=== PATIENT | female | born 1930 | race Caucasian/White ===

== ENCOUNTER 2017-09-15 16:25 | Observation (INO) ==
[2017-09-15] MEDS ORDERED: Acetaminophen 325 MG TABLET PO PRN (21:57)
[2017-09-15] MEDS ORDERED: Naloxone 0.4 MG/ML INJ IVP PRN (21:57)
[2017-09-15] MEDS ORDERED: Melatonin 3 MG TABLET PO PRN (22:02)
--- NOTE | 2017-09-15 22:07 | Internal Med History&Physical ---
Date of Encounter: 09/15/17 Time of Encounter: 22:05 Assessment and Plan (1) CHF (congestive heart failure) Current visit: Yes Status: Chronic Euvolemic Continue home meds-ASA/BB/Spironolactone/Lasix/Plavix Obtain ECHO Qualifiers: Congestive heart failure type: unspecified congestive heart failure type Congestive heart failure chronicity: chronic Qualified Code(s): I50.9 - Heart failure, unspecified (2) CAD (coronary artery disease) Current visit: Yes Status: Chronic With stable angina Recent NSTEMI 07/2017 without intervention, managed medically Baseline functional status impaired due to CHF Obtain ECHO Cardiology clearance before surgery Continue home meds Qualifiers: Coronary Disease-Associated Artery/Lesion type: [place] artery [place] vs. transplanted heart: [place] heart Associated angina: with stable angina Qualified Code(s): I25.118 - Atherosclerotic heart disease of [place] coronary artery with other forms of angina pectoris (3) Fracture Current visit: Yes Status: Acute Right wrist, closed Ortho has been consulted and called pain control No neurovascular damage is evident (4) Fall Current visit: Yes Status: Acute With head injury, scalp hematoma and laceration, facial lacertaion Pain control Fall precautions Obtain UA Qualifiers: Encounter type: initial encounter Qualified Code(s): W19.XXXA - Unspecified fall, initial encounter (5) Scalp hematoma Current visit: Yes Status: Acute Monitor H/H pain control Qualifiers: Encounter type: initial encounter Qualified Code(s): S00.03XA - Contusion of scalp, initial encounter (6) Hypothyroidism Current visit: Yes Status: Chronic Resume home meds Qualifiers: Hypothyroidism type: unspecified Qualified Code(s): E03.9 - Hypothyroidism , unspecified (7) Chronic respiratory failure Current visit: Yes Status: Chronic On HOme O2 at night, continue same Qualifiers: Respiratory failure complication: hypoxia Qualified Code(s): J96.11 - Chronic respiratory failure with hypoxia Internal Medicine - H&P: HPI Chief complaint: Fall Admitted From: Hospital to Hospital Transfer Plans for Post Hospital Care: Home History of present illness: Ms. Le is a 87 year old female Seen and evaluated at bedside with her daughter She has a PMH of CAD with stable angina, recent NSTEMI 07/2017 without intervention, multiple stents in the past as well as a PCM, CHF, Hypothyroid She was in her usual state of health till this morning when she slipped and fell face down hitting her head and face in the corner of the building, she does not remember breaking the fall with her R side but remembers her hands were free. She has no diaphoresis/Chest pain/Dizziness/Shortness of breath or palpitations prior to the fall She is O2 dependent at bedtime and at baseline is unable to walk more than a few steps before getting dyspneic, this is her baseline since her last NSTEMI one month ago, during which she had refused LHC She denies any other symptoms Her main complains at time of review were Chest wall pain, R arm pain She presented to [facility] where she was found to have a facial lac, as well as frontal scalp hematoma. Work up done over there: CBC: leukocytosis, WBC 17.2. HB and PLT WNL Chem: WNL, Cr 1.39, baseline unknown CXR-No fracture rib series: No fracture C-spine CT: No fracture, suspect distal clavicular fracture T-spine CT: No fractures, normal alignment Head CT: Frontal scalp hematoma, no intracranial hge Rib series: No fracture Shoulder Xray: DJD, no fracture Wrist X-ray-Right: Comunited, intra-articular displaced and angulated fracture. Past Med Surg Social Fam HX - Past Medical History Medical history: CHF, coronary artery disease, hyperlipidemia, hypertension, thyroid disease All Systems PM: A 10-system review of systems was performed and is negative for pertinent findings except as documented above in the HPI. - Constitutional Constitutional: no chills, no fever(s), no night sweats - EENT Eyes: no change in vision, no discharge, no pain, no photophobia Ears: no ear discharge, no ear pain, no tinnitus Nose, mouth and throat: no dysphagia, no nasal discharge, no neck pain, no sore throat - Cardiovascular Cardiovascular ROS IM: as per HPI - Respiratory Respiratory: as per HPI - Gastrointestinal Gastrointestinal: as per HPI - Genitourinary Genitourinary: as per HPI - Musculoskeletal Musculoskeletal ROS IM: as per HPI - Integumentary Integumentary IM: as per HPI - Neurological Neurological ROS: no confusion, no convulsions, no focal weakness, no numbness, no tingling, no tremor(s) - Hematologic/Lymphatic Hematologic/Lymphatic: no easy bruising - Constitutional Vitals: Temp Pulse Resp BP Pulse Ox 97.9 F 77 15 129/65 96 09/15/17 20:35 09/15/17 20:35 09/15/17 20:35 09/15/17 20:35 09/15/17 20:35 VSS Gen: In mild painful distress, speaks full sentences, answers questions appropriately HEENT: Large frontal hematoma, with tenderness, frontal and perinasal laceration , with intact sutures Chest: Mild chest wall tenderness anteriorly, no bruising, s/p R mastectomy. Heart: S1, S2 only, no m/g/r Abdomen: Soft, not tender Extremities: No pedal edema. R arm in splint, normal capillary refill, normal sensation
[2017-09-15] MEDS: *HR* Heparin 5,000 UNIT/ML VIAL SQ SCH (22:24)
[2017-09-15] MEDS: *HR* HYDROcodone/Acet 5/325 mg TABLET PO PRN (22:25)
[2017-09-15 22:37] LABS: Basophils # 0.1 K/mcL (0.0-0.2); Basophils % 0.3 %; Hematocrit 40.9 % (35.3-44.9); Hemoglobin 14.6 g/dL (11.5-15.4); Immature Granulocytes % 0.3 % (0-4); Lymphocytes # 1.7 K/mcL (0.6-4.6); Lymphocytes % 11.2 %; Mean Corpuscular HGB Conc 35.7 g/dL (31.6-35.5); Mean Corpuscular Hemoglobin 30.3 pg (28.0-33.3); Mean Corpuscular Volume 84.9 fL (83.0-100.0); Mean Platelet Volume 9.4 fL (9.4-12.4); Monocytes # 1.2 K/mcL (0.0-1.3); Monocytes % 8.3 %; Neutrophils # 11.7 K/mcL (1.6-8.9); Platelet Count 192 K/mcL (140-400); Red Blood Count 4.82 M/mcL (3.82-4.97); Red Cell Distribution Width 12.9 % (11.5-14.5); Segmented Neutrophils % 79.9 %
[2017-09-15 22:49] LABS: Calcium 9.4 mg/dL (8.6-10.8)
[2017-09-15 22:50] LABS: Potassium 4.8 mEq/L (3.5-4.5)
[2017-09-15] MEDS ORDERED: Ketorolac 30 MG/ML VIAL IM ONE (23:36)
[2017-09-15] MEDS: *HR* Morphine 2 MG/ML SYRINGE IVP PRN (23:50)
[2017-09-16] MEDS: *HR* HYDROcodone/Acet 5/325 mg TABLET PO PRN ×3 (01:58→22:34)
[2017-09-16] MEDS: *HR* Morphine 2 MG/ML SYRINGE IVP PRN (03:50)
[2017-09-16 06:04] LABS: INR 1.1
[2017-09-16 06:38] LABS: Activated Partial Thrombo Time 24.5 Seconds (26.0-36.0)
[2017-09-16] MEDS: *HR* Heparin 5,000 UNIT/ML VIAL SQ SCH ×3 (08:39→20:33)
[2017-09-16] MEDS: Levothyroxine 25 MCG TABLET PO SCH (08:39)
[2017-09-16] MEDS: Furosemide 40 MG TABLET PO SCH (08:43)
[2017-09-16] MEDS: Aspirin Enteric Coated 81 MG Tablet PO SCH (08:43)
[2017-09-16] MEDS: Cholecalciferol (D-3) 1,000 UNIT TABLET PO SCH (08:43)
[2017-09-16] MEDS: Isosorbide MONOnitrate (24 HR) 30 MG TAB.ER.24H PO SCH (08:43)
[2017-09-16] MEDS: Spironolactone 25 MG TABLET PO SCH (08:43)
[2017-09-16] MEDS: *HR* OxyCODONE/APAP 5/325 TABLET PO PRN ×2 (08:44→15:53)
--- NOTE | 2017-09-16 10:21 | Cardiology Consult Note ---
<Jeanmarie Peña R - Last Filed: 09/16/17 10:18> Date of Encounter: 09/16/17 Time of Encounter: 10:18 Assessment and Plan (1) Pre-operative cardiovascular examination Current Visit: Yes Status: Acute Pre-op risk stratification for right wrist fracture. Pt is not very active. Reports chronic dyspnea with minimal exertion. Known CAD, most recent PCI reported 09/2015. Complicated by the fact that pt reports a recent NSTEMI last month at [facility] at which time she refused a LHC that was recommended due to not trusting them. Denies chest pain since being started on Imdur. Unable to accurately risk stratify pt for surgery until records are obtained and reviewed. These have been requested. Pt reports having a recent echo, reportedly preserved EF. Will request these records as well. No EKG on chart. Will obtain. (2) CAD (coronary artery disease) Current Visit: Yes Status: Chronic Hx of 3 stents, per pt, most recent 09/2015. ASA, Statin, BB. As above, recent NSTEMI and declined cath. Obtaining records. Qualifiers: Coronary Disease-Associated Artery/Lesion type: [place] artery [place] vs. transplanted heart: [place] heart Associated angina: with stable angina Qualified Code(s): I25.118 - Atherosclerotic heart disease of [place] coronary artery with other forms of angina pectoris (3) Pacemaker Current Visit: Yes Status: Acute Discussion w patient/family: The assessment and plan as outlined above was discussed with the patient and/or family members who expressed understanding and agreement. All questions were answered. Thank you for involving us in the care of your patient. Please call with any questions. I will discuss all the above with Dr. Carbone and make changes as necessary. History of Present Illness Consult date: 09/16/17 Requesting physician: Cem Murray Consult reason: pre-op risk stratification Chief complaint: fall History of present illness: Ms. Le is a 87 year old female with PMH of CAD and PCI, reported recent NSTEMI 07/2017 at [facility] at which time she refused LHC, PPM, Hypothyroidism, CHF (uncertain type)that presented in transfer after she slipped and fell face down hitting her head and face in the corner of a building. She denies loss of consciousness. She reports chronic dyspnea. She reports she had not been having any chest pain since her recent hospital discharge with addition of Coreg and Imdur. Pt found to have right wrist fx. Cardiology consulted for pre-op risk stratification. Past Med Surg Social Fam HX - Past Medical History Medical history: CHF, coronary artery disease, hyperlipidemia, hypertension, thyroid disease Psychiatric history: no psych history - Past Surgical History Surgical History: angioplasty/stent, appendectomy, breast surgery, hysterectomy - Social History Smoking Status: Never smoker Smokeless Tobacco Status: No Alcohol use: none Drug use: none - Family History Mother Family Member Ethnicity: Non- Living Status: Cause of : stroke related Hx Family Cardiac Disorders: Yes Father Living Status: Cause of : Cancer Medications and Allergies Aspirin [Lo-Dose Aspirin EC] 81 mg PO DAILY 09/15/17 [History] Carvedilol 3.125 mg PO BID 09/15/17 [History] Cholecalciferol (Vitamin D3) [Vitamin D] 1,000 unit PO DAILY 09/15/17 [History] Clopidogrel [Plavix] 75 mg PO DAILY 09/15/17 [History] Furosemide [Lasix] 40 mg PO QMWFSU 09/15/17 [History] Isosorbide MONOnitrate (24 HR) [Imdur] 30 mg PO DAILY 09/15/17 [History] Levothyroxine [Synthroid] 25 mcg PO 0630 09/15/17 [History] Melatonin/Herbal Complex #184 [Melatonin + l-Theanine Softgel] 3 mg PO HS [History] Multivit-Min/Iron Fum/Folic AC [Ymert-Mwofirt-Qwikfiak Tablet] 1 tab PO DAILY [History] Omeprazole [PriLOSEC] 20 mg PO DAILY 09/15/17 [History] Potassium Chloride [Klor-Con 10] 10 meq PO QTUTHSA 09/15/17 [History] Sennosides/Docusate Sodium [Senna Plus] 2 tab PO BID 09/15/17 [History] Simvastatin [Zocor] 40 mg PO HS 09/15/17 [History] Spironolactone [Aldactone] 25 mg PO DAILY 09/15/17 [History] Tramadol HCl [Ultram] 50 mg PO Q6H PRN 09/15/17 [History] traZODone [TraZODone] 50 mg PO HS 09/15/17 [History] 3 Allergy/AdvReac Type Severity Reaction Status Date / Time meperidine [From Demerol] AdvReac Intermediate Vomiting Verified 09/16/17 03:31 diphenhydramine AdvReac Mild See Verified 09/16/17 03:28 [From Benadryl] Comments All Systems Review: A 10-system review of systems was performed and is negative for pertinent findings except as documented above in the HPI. - Cardiovascular Cardiovascular: as per HPI, dyspnea on exertion - Respiratory Respiratory: dyspnea Physical Examination Vital Signs, Last 4 Hours Temp Pulse Resp BP Pulse Ox 09/16/17 07:05 97.4 F L 69 13 139/69 97 Vital Signs Temp Pulse Resp BP Pulse Ox 09/16/17 07:05 97.4 F L 69 13 139/69 97 09/16/17 04:46 69 15 118/58 96 09/15/17 23:25 66 20 130/64 95 09/15/17 20:35 97.9 F 77 15 129/65 96 Intake and Output 09/15/17 09/16/17 09/16/17 23:59 07:59 15:59 Intake Total 120 / 120 Balance 120 / 120 Intake: Oral 120 / 120 Other: Meal Breakfast Percent of Meal Consumed 25% # Voids 1 Weight 63.6 kg General: Conversant, No Apparent Distress HEENT: Atraumatic, Normocephaly, Mucus Membranes Moist Neck: No JVD, Normal carotid pulses Cardiac: Other (paced) Lungs: Normal Breath Sounds, No Wheeze, Rales, Rhonchi Neuro: Alert and responsive, No focal deficits noted Abdomen: Soft, Non-Tender Skin: Other (facial contusions) Musculoskeletal: No Chest Wall Tenderness Extremities: No Clubbing, No Cyanosis, No Edema, Normal Pulses Results 09/15/17 22:30 09/15/17 22:30 Lab Results 09/15/17 09/15/17 09/16/17 22:30 22:30 05:17 WBC 14.7 H Hgb 14.6 Hct 40.9 Plt Count 192 INR 1.1 APTT 24.5 L Sodium 136 Potassium 4.8 H Chloride 103 Carbon Dioxide 20 BUN 22 H Creatinine 1.16 H Glucose 153 H Calcium 9.4 Short CBC 09/15/17 Range/Units 22:30 WBC 14.7 H (4.3-11.1) K/mcL Hgb 14.6 (11.5-15.4) g/dL Hct 40.9 (35.3-44.9) % Plt Count 192 (140-400) K/mcL Neutrophils # 11.7 H (1.6-8.9) K/mcL BMP 09/15/17 Range/Units 22:30 Sodium 136 (136-145) mEq/L Potassium 4.8 H (3.5-4.5) mEq/L Chloride 103 (98-109) mEq/L Carbon Dioxide 20 (19-29) mEq/L BUN 22 H (7-20) mg/dL Creatinine 1.16 H (0.57-1.11) mg/dL Glucose 153 H (70-99) mg/dL Calcium 9.4 (8.6-10.8) mg/dL Active Medications Acetaminophen (Tylenol) 650 mg PO Q6HR PRN PRN Reason: Mild Pain (1-3) Stop: 03/17/18 21:58 Hydrocodone Bitart/Acetaminophen ([place] 5-325 Mg) 1 tab PO Q4HR PRN PRN Reason: Moderate Pain (4-6) Stop: 03/17/18 21:58 Last Admin: 09/16/17 01:58 Dose: 1 tab Aspirin (Aspirin Ec) 81 mg PO DAILY [facility] Stop: 03/18/18 09:01 Last Admin: 09/16/17 08:43 Dose: 81 mg Carvedilol (Coreg) 3.125 mg PO BIDWM [facility] PRN Reason: Protocol Stop: 03/18/18 08:01 Last Admin: 09/16/17 08:43 Dose: 3.125 mg Furosemide (Lasix) 40 mg PO DAILY [facility] Stop: 03/18/18 09:01 Last Admin: 09/16/17 08:43 Dose: 40 mg Heparin Sodium (Porcine) (Heparin) 5,000 unit SQ Q8H [facility] Stop: 03/17/18 22:01 Last Admin: 09/16/17 08:39 Dose: Not Given Isosorbide Mononitrate (Imdur) 30 mg PO DAILY [facility] Stop: 03/18/18 09:01 Last Admin: 09/16/17 08:43 Dose: 30 mg Levothyroxine Sodium (Synthroid) 25 mcg PO DAILY@0630 [facility] Stop: 03/18/18 06:31 Last Admin: 09/16/17 08:39 Dose: Not Given Melatonin (Melatonin) 3 mg PO HS PRN PRN Reason: Insomnia Stop: 03/17/18 22:03 Naloxone HCl (Narcan) 0.4 mg IVP Q2MIN PRN PRN Reason: Opioid Reversal Stop: 03/17/18 21:58 Omeprazole (Prilosec) 20 mg PO 0630 [facility] PRN Reason: Protocol Stop: 03/18/18 06:31 Last Admin: 09/16/17 08:39 Dose: Not Given Oxycodone/Acetaminophen (Percocet 5/325) 1 each PO Q6HR PRN PRN Reason: Moderate Pain Stop: 03/18/18 08:21 Last Admin: 09/16/17 08:44 Dose: 1 each Spironolactone (Aldactone) 25 mg PO DAILY [facility] Stop: 03/18/18 09:01 Last Admin: 09/16/17 08:43 Dose: 25 mg Vitamin D (Vitamin D) 1,000 unit PO DAILY [facility] Stop: 03/18/18 09:01 Last Admin: 09/16/17 08:43 Dose: 1,000 unit Consult Discharge Plan - Plan Referrals: Lisette Rodriguez MD [Primary Care Provider] - <Elizabeth Carbone - Last Filed: 09/16/17 11:53> Date of Encounter: 09/16/17 - Attending Attestation I have personally performed a face to face evaluation on this patient. I have reviewed and agree with the care plan with MARKET RESEARCH WORKER: Ms. Le presents after sustaining a mechanical fall and found to have a right wrist fracture. Cardiology was consulted for preoperative risk stratification. Patient does not appear to be very active and has chronic dyspnea. She has known coronary disease having undergone PCI reportedly in September 2015 at an outside institution. Patient's medical history is complicated by apparently having an NSTEMI at [facility] last month at which time she declined C. She denies chest pain since she was started on Imdur. However, given her limited functional status, it is challenging to elicit symptoms. At this time, it is reasonable to obtain outside records for review of recent hospitalization including but not limited to echo, cardiology notes and discharge summary. No ECG - will obtain. Assessment and Plan Discussion w patient/family: The assessment and plan as outlined above was discussed with the patient and/or family members who expressed understanding and agreement. All questions were answered. Thank you for involving us in the care of your patient. Please call with any questions. History of Present Illness History of present illness: Ms. Le is a 87 year old female All Systems Review: A 10-system review of systems was performed and is negative for pertinent findings except as documented above in the HPI. Results 09/15/17 22:30 09/15/17 22:30 Lab Results 09/15/17 09/15/17 09/16/17 22:30 22:30 05:17 WBC 14.7 H Hgb 14.6 Hct 40.9 Plt Count 192 INR 1.1 APTT 24.5 L Sodium 136 Potassium 4.8 H Chloride 103 Carbon Dioxide 20 BUN 22 H Creatinine 1.16 H Glucose 153 H Calcium 9.4
--- NOTE | 2017-09-16 10:28 | Internal Med Progress Note ---
<Uriel Alegria - Last Filed: 09/16/17 12:49> Date of Encounter: 09/16/17 Time of Encounter: 10:45 - Assessment and plan (1) Fracture Current Visit: Yes Status: Acute Assessment and plan: Right wrist, closed Ortho has been consulted and called pain control No neurovascular damage is evident Code status clarified today: patient is DNR DNI-CCA (2) Fall Current Visit: Yes Status: Acute Assessment and plan: With head injury, scalp hematoma and laceration, facial lacertaion Pain control Fall precautions Obtain UA Qualifiers: Encounter type: initial encounter Qualified Code(s): W19.XXXA - Unspecified fall, initial encounter (3) Scalp hematoma Current Visit: Yes Status: Acute Assessment and plan: Monitor H/H pain control Qualifiers: Encounter type: initial encounter Qualified Code(s): S00.03XA - Contusion of scalp, initial encounter (4) CHF (congestive heart failure) Current Visit: Yes Status: Chronic Assessment and plan: Euvolemic Prior PACER Continue home meds-ASA/BB/Spironolactone/Lasix/Plavix Obtain ECHO Qualifiers: Congestive heart failure type: unspecified congestive heart failure type Congestive heart failure chronicity: chronic Qualified Code(s): I50.9 - Heart failure, unspecified (5) CAD (coronary artery disease) Current Visit: Yes Status: Chronic Assessment and plan: With stable angina Recent NSTEMI 07/2017 without intervention, managed medically Baseline functional status impaired due to CHF Obtain ECHO Cardiology clearance before surgery Continue home meds Qualifiers: Coronary Disease-Associated Artery/Lesion type: [place] artery [place] vs. transplanted heart: [place] heart Associated angina: with stable angina Qualified Code(s): I25.118 - Atherosclerotic heart disease of [place] coronary artery with other forms of angina pectoris (6) Chronic respiratory failure Current Visit: Yes Status: Chronic Assessment and plan: On HOme O2 at night, continue same Qualifiers: Respiratory failure complication: hypoxia Qualified Code(s): J96.11 - Chronic respiratory failure with hypoxia (7) Hypothyroidism Current Visit: Yes Status: Chronic Assessment and plan: Resume home meds Qualifiers: Hypothyroidism type: unspecified Qualified Code(s): E03.9 - Hypothyroidism , unspecified (8) Weakness of right leg Current Visit: Yes Status: Acute Assessment and plan: She reports chronic right foot drop and weakness that caused her to trip and fall (9) CKD (chronic kidney disease) stage 3, GFR 30-59 ml/min Current Visit: Yes Status: Acute Assessment and plan: Patient reports her creatinine has been elevated for the past month at her PCP' s office. (10) DVT prophylaxis Current Visit: Yes Status: Acute Assessment and plan: Heparin subq TID - Subjective Interval history: Patient seen and examined. Patient reports pain level controlled with oral Percocet. She reports chronic right foot drop and weakness that caused her to trip and fall yesterday. Patient reports her creatinine has been elevated for the past month at her PCP's office. - Constitutional Vitals: Temp Pulse Resp BP Pulse Ox 97.4 F L 69 13 139/69 97 09/16/17 07:05 09/16/17 07:05 09/16/17 07:05 09/16/17 07:05 09/16/17 07:05 General appearance: Present: cooperative, mild distress, A&O X 3, pleasant, answers questions appropriately - Head Head exam: Present: normocephalic. Absent: atraumatic, normal inspection Additional comments: Large frontal hematoma, with tenderness, frontal and perinasal laceration, with intact sutures - Eye Eye exam: Present: EOMI, PERRL, conjuntiva pink, sclera anicteric Pupils: Present: PERRL - ENT ENT exam: Present: mucous membranes dry, normal oropharynx - Neck Neck exam general surgery: Present: normal inspection, supple, trachea midline. Absent: lymphadenopathy - Respiratory Respiratory exam: Present: CTAB. Absent: accessory muscle use, rales, rhonchi, wheezes - Cardiovascular Cardiovascular exam: Present: RRR, +S1, +S2. Absent: diastolic murmur, gallop, rubs, systolic murmur - GI/Abdominal GI/Abdominal exam: Present: normal bowel sounds, soft, no peritoneal signs. Absent: distended, tenderness - Extremities Exam Extremities exam: Present: warm, radial pulses palpable and symmetrical. Absent : calf tenderness, cyanotic, pedal edema - Neurological Exam Neurological exam: Present: CN II-XII intact, oriented X3, no focal deficits. Absent: pronater drift, facial droop, speech deficit - Skin Skin exam: Present: dry, intact Internal Medicine: Result - Labs CBC & Chem 7: 09/15/17 22:30 09/15/17 22:30 Labs: Short CBC 09/15/17 Range/Units 22:30 WBC 14.7 H (4.3-11.1) K/mcL Hgb 14.6 (11.5-15.4) g/dL Hct 40.9 (35.3-44.9) % Plt Count 192 (140-400) K/mcL Neutrophils # 11.7 H (1.6-8.9) K/mcL BMP 09/15/17 22:30 Sodium 136 Potassium 4.8 H Chloride 103 Carbon Dioxide 20 BUN 22 H Creatinine 1.16 H Glucose 153 H Calcium 9.4 - ABG Interpretation ABG results: PT/INR, D-dimer PT 12.0 Seconds (9.4-12.1) 09/16/17 05:17 - Pulse Oximetry Interpretation Digit-Finger Pulse Oximetry Readin (on RA) Consult Discharge Plan - Plan Referrals: Lisette Rodriguez MD [Primary Care Provider] - <Rm Hinton H - Last Filed: 09/16/17 12:52> Date of Encounter: 09/16/17 - Constitutional Vitals: Temp Pulse Resp BP Pulse Ox 97.4 F L 69 13 139/69 97 09/16/17 07:05 09/16/17 07:05 09/16/17 07:05 09/16/17 07:05 09/16/17 07:05 Internal Medicine: Result - Labs CBC & Chem 7: 09/15/17 22:30 09/15/17 22:30 Labs: Short CBC 09/15/17 Range/Units 22:30 WBC 14.7 H (4.3-11.1) K/mcL Hgb 14.6 (11.5-15.4) g/dL Hct 40.9 (35.3-44.9) % Plt Count 192 (140-400) K/mcL Neutrophils # 11.7 H (1.6-8.9) K/mcL BMP 09/15/17 22:30 Sodium 136 Potassium 4.8 H Chloride 103 Carbon Dioxide 20 BUN 22 H Creatinine 1.16 H Glucose 153 H Calcium 9.4 - ABG Interpretation ABG results: PT/INR, D-dimer PT 12.0 Seconds (9.4-12.1) 09/16/17 05:17 - Attending Attestation Diastolic CHF with no exacerbation, may continue Lasix Cardiology recommendations appreciated to assess cardiac risk for surgery due to recent non-STEMI, the patient refused to have a left heart catheterization during her prior hospitalization I examined this patient and my medical decision-making was reviewed with the Resident Physician. I agree with the documented findings, disposition and treatment plan as described except to the extent set forth below.
[2017-09-16] MEDS ORDERED: *HR* Morphine 2 MG/ML SYRINGE IVP PRN (11:03)
[2017-09-16] MEDS ORDERED: traMADol 50 MG TABLET PO PRN ×2 (13:07→13:29)
[2017-09-16 13:41] LABS: Bilirubin,Urine Negative (Negative); Blood,Urine Trace (Negative); Clarity,Urine Clear (Clear); Color,Urine Yellow (Yellow); Glucose,Urine (UA) Normal (Normal); Ketones,Urine Negative (Negative); Leukocyte Esterase,Urine Negative (Negative); Nitrite,Urine Negative (Negative); Protein,Urine Negative (Neg-Trace); Specific Gravity,Urine 1.016 (1.010-1.025); Urobilinogen,Urine Normal (Normal)
[2017-09-16 13:44] LABS: Bacteria,Urine None Seen per hpf (None-Few); Hyaline Casts,Urine None Seen per lpf (None-Few); RBC,Urine 0-3 per hpf (0-3); Squamous Epithelial Cell,Urine Many per lpf (None-Few); WBC,Urine 0-3 per hpf (0-3)
--- NOTE | 2017-09-16 17:28 | Orthopedic Consult Note ---
Date of Encounter: 09/16/17 Time of Encounter: 17:20 History of Present Illness Chief complaint: Right wrist pain HPI: Ms. Le is a 87 year old [id number] female who sustained injuries to her right shoulder elbow and wrist as well as facial injuries when she apparently stumbled and fell into a johny wall. This happened yesterday. She was seen at an outside facility where she was noted to have multiple facial lacerations as well as a scalp laceration as well as a fracture of the right distal radius. She was sent to [facility] for definitive management of her injuries. Patient does have a complicated past medical history including a non-STEMI about a month ago that was treated nonoperatively. The patient declined intervention at this time and has been treated medically. She is on both Plavix and aspirin on a regular basis. For complete history and physical data please refer to the completed portion of the medical record. Pertinent orthopedic examination this time reveals no significant edema or ecchymosis about both the right shoulder and elbow. The right wrist shows a skin tear on the right ulnar volar aspect. There is some edema and evolving ecchymosis. Distal neurosensory exam is grossly intact. With some difficulty, I was able to obtain and review multiple x-rays from an outside facility. This included a shoulder x-ray showed no acute fracture or dislocation etc. A right elbow x-ray though limited views with the no obvious acute fracture noted dislocation. The right distal radius reveals a slightly displaced fracture of the distal radius. This is associated with some minor reversal of the palm marked tilt and some loss of the normal radial inclination. There is minimal shortening. There is no evidence of intra-articular component into the radial carpal joint though this does involve the distal radial ulnar joint. There is an ulnar styloid fracture. Impression: Frykman Colles' fracture right wrist with mild displacement Recommendation: I had a very long discussion with the patient and her family about the fracture and the treatment options available to her. In essence 2 options, nonoperative versus operative intervention. Nonoperative management could include simple immobilization or an attempted closed reduction and immobilization. This would probably leave her with some mild residual deformity but able to avoid surgery. The other option would be to proceed with open reduction internal fixation of this fracture. The patient is well aware of her surgical risk in light of her recent cardiac event. Even if surgery were to be entertained I would not do it on a more urgent basis, rather I would wait 7-10 or more days for the swelling to go down prior to intervention. After much discussion with the patient the family and myself agree that nonoperative management would be adequate for this 87-year-old woman. She understands that immobilization would leave her probably some very mild residual deformity but should not affect her function once the fracture is healed. At the bedside I placed her into a well-padded and well molded volar fiberglass splint. We discussed elevation of the hand and fingers. I would like to see her back in the office in about 10 days or 2 weeks or sooner should any problems arise. Thank you very much for allowing me to see care for Mrs. Le. Sincerely, Amandeep Lenz, DO Past Med Surg Social Fam HX - Past Medical History Medical history: CHF, coronary artery disease, hyperlipidemia, hypertension, thyroid disease Psychiatric history: no psych history - Past Surgical History Surgical History: angioplasty/stent, appendectomy, breast surgery, hysterectomy - Social History Smoking Status: Never smoker Smokeless Tobacco Status: No Alcohol use: none Drug use: none - Family History Mother Family Member Ethnicity: Non- Living Status: Cause of : stroke related Hx Family Cardiac Disorders: Yes Father Living Status: Cause of : Cancer Medications and Allergies Aspirin [Lo-Dose Aspirin EC] 81 mg PO DAILY 09/15/17 [History] Carvedilol 3.125 mg PO BID 09/15/17 [History] Cholecalciferol (Vitamin D3) [Vitamin D] 1,000 unit PO DAILY 09/15/17 [History] Clopidogrel [Plavix] 75 mg PO DAILY 09/15/17 [History] Furosemide [Lasix] 40 mg PO QMWFSU 09/15/17 [History] Isosorbide MONOnitrate (24 HR) [Imdur] 30 mg PO DAILY 09/15/17 [History] Levothyroxine [Synthroid] 25 mcg PO 0630 09/15/17 [History] Melatonin/Herbal Complex #184 [Melatonin + l-Theanine Softgel] 3 mg PO HS [History] Multivit-Min/Iron Fum/Folic AC [Zckoh-Awbeqpg-Ctpxbnxz Tablet] 1 tab PO DAILY [History] Omeprazole [PriLOSEC] 20 mg PO DAILY 09/15/17 [History] Potassium Chloride [Klor-Con 10] 10 meq PO QTUTHSA 09/15/17 [History] Sennosides/Docusate Sodium [Senna Plus] 2 tab PO BID 09/15/17 [History] Simvastatin [Zocor] 40 mg PO HS 09/15/17 [History] Spironolactone [Aldactone] 25 mg PO DAILY 09/15/17 [History] Tramadol HCl [Ultram] 100 mg PO Q6H PRN 09/15/17 [History] traZODone [TraZODone] 50 mg PO HS 09/15/17 [History] 3 Allergy/AdvReac Type Severity Reaction Status Date / Time meperidine [From Demerol] AdvReac Intermediate Vomiting Verified 09/16/17 14:06 diphenhydramine AdvReac Mild See Verified 09/16/17 14:06 [From Benadryl] Comments All Systems Reviewed: A 10-system review of systems was performed and is negative for pertinent findings except as documented above in the HPI. Physical Exam - Constitutional Vitals: Temp Pulse Resp BP Pulse Ox 97.6 F 68 14 117/59 91 09/16/17 12:18 09/16/17 12:18 09/16/17 12:18 09/16/17 12:18 09/16/17 12:18 Results - Labs Result Diagrams: 09/15/17 22:30 09/15/17 22:30 Labs: Abnormal lab results WBC 14.7 K/mcL (4.3-11.1) H 09/15/17 22:30 MCHC 35.7 g/dL (31.6-35.5) H 09/15/17 22:30 Neutrophils # 11.7 K/mcL (1.6-8.9) H 09/15/17 22:30 APTT 24.5 Seconds (26.0-36.0) L 09/16/17 05:17 Potassium 4.8 mEq/L (3.5-4.5) H 09/15/17 22:30 BUN 22 mg/dL (7-20) H 09/15/17 22:30 Creatinine 1.16 mg/dL (0.57-1.11) H 09/15/17 22:30 Est GFR ( Amer) 54 (> 60) L 09/15/17 22:30 Est GFR (Non-Af Amer) 44 (> 60) L 09/15/17 22:30 Glucose 153 mg/dL (70-99) H 09/15/17 22:30 Urine Blood Trace (Negative) H 09/16/17 13:30 Ur Squamous Epith Cells Many per lpf (None-Few) H 09/16/17 13:30 H & H 09/15/17 Range/Units 22:30 Hgb 14.6 (11.5-15.4) g/dL Hct 40.9 (35.3-44.9) % All other labs normal. - Diagnostic results Shoulder x-ray: image reviewed Elbow x-ray: image reviewed Wrist/Hand x-ray: image reviewed Consult Discharge Plan - Plan Referrals: Lisette Rodriguez MD [Primary Care Provider] -
[2017-09-17] MEDS: *HR* HYDROcodone/Acet 5/325 mg TABLET PO PRN ×2 (03:01→14:23)
[2017-09-17 03:23] LABS: Basophils # 0.1 K/mcL (0.0-0.2); Basophils % 0.9 %; Eosinophils # 0.2 K/mcL (0.0-0.6); Eosinophils % 2.2 %; Hematocrit 34.5 % (35.3-44.9); Immature Granulocytes % 0.2 % (0-4); Lymphocytes # 3.8 K/mcL (0.6-4.6); Lymphocytes % 43.8 %; Mean Corpuscular HGB Conc 33.9 g/dL (31.6-35.5); Mean Corpuscular Hemoglobin 29.6 pg (28.0-33.3); Mean Corpuscular Volume 87.3 fL (83.0-100.0); Mean Platelet Volume 9.9 fL (9.4-12.4); Neutrophils # 3.6 K/mcL (1.6-8.9); Platelet Count 155 K/mcL (140-400); Red Blood Count 3.95 M/mcL (3.82-4.97); Red Cell Distribution Width 13.1 % (11.5-14.5); Segmented Neutrophils % 41.9 %
[2017-09-17 03:33] LABS: Hemoglobin 11.7 g/dL (11.5-15.4)
[2017-09-17 03:38] LABS: Calcium 8.7 mg/dL (8.6-10.8); Potassium 3.9 mEq/L (3.5-4.5)
[2017-09-17] MEDS: *HR* Heparin 5,000 UNIT/ML VIAL SQ SCH ×2 (05:50→14:22)
[2017-09-17] MEDS: Levothyroxine 25 MCG TABLET PO SCH (05:50)
[2017-09-17 07:40] VITALS: BP 129/60
[2017-09-17] MEDS: Spironolactone 25 MG TABLET PO SCH (09:01)
[2017-09-17] MEDS: Aspirin Enteric Coated 81 MG Tablet PO SCH (09:01)
[2017-09-17] MEDS: Furosemide 40 MG TABLET PO SCH (09:02)
[2017-09-17] MEDS: Cholecalciferol (D-3) 1,000 UNIT TABLET PO SCH (09:02)
[2017-09-17] MEDS: Isosorbide MONOnitrate (24 HR) 30 MG TAB.ER.24H PO SCH (09:02)
[2017-09-17] MEDS: *HR* OxyCODONE/APAP 5/325 TABLET PO PRN (09:04)
--- NOTE | 2017-09-17 10:00 | Discharge Summary ---
<Sidney Yuan - Last Filed: 09/17/17 15:34> Date of Encounter: 09/17/17 Time of Encounter: 09:57 - Discharge Diagnosis (1) CHF (congestive heart failure) Priority: Secondary Status: Chronic Qualifiers: Congestive heart failure type: unspecified congestive heart failure type Congestive heart failure chronicity: chronic Qualified Code(s): I50.9 - Heart failure, unspecified (2) Fracture Priority: Primary Status: Acute (3) Fall Priority: Primary Status: Acute Qualifiers: Encounter type: initial encounter Qualified Code(s): W19.XXXA - Unspecified fall, initial encounter (4) Scalp hematoma Priority: Primary Status: Acute Qualifiers: Encounter type: initial encounter Qualified Code(s): S00.03XA - Contusion of scalp, initial encounter (5) Weakness of right leg Priority: Secondary Status: Acute (6) CKD (chronic kidney disease) stage 3, GFR 30-59 ml/min Priority: Secondary Status: Acute - Discharge Medications Prescriptions: Oxycodone HCl/Acetaminophen [Percocet 5-325 mg Tablet] 1 each PO Q6H PRN 7 Days #28 tablet PRN Reason: Pain Home Medications: Aspirin [Lo-Dose Aspirin EC] 81 mg PO DAILY 09/15/17 [History] Carvedilol 3.125 mg PO BID 09/15/17 [History] Cholecalciferol (Vitamin D3) [Vitamin D] 1,000 unit PO DAILY 09/15/17 [History] Clopidogrel [Plavix] 75 mg PO DAILY 09/15/17 [History] Furosemide [Lasix] 40 mg PO QMWFSU 09/15/17 [History] Isosorbide MONOnitrate (24 HR) [Imdur] 30 mg PO DAILY 09/15/17 [History] Levothyroxine [Synthroid] 25 mcg PO 0630 09/15/17 [History] Melatonin/Herbal Complex #184 [Melatonin + l-Theanine Softgel] 3 mg PO HS [History] Multivit-Min/Iron Fum/Folic AC [Fxijg-Zodeerz-Ixwflapu Tablet] 1 tab PO DAILY [History] Omeprazole [PriLOSEC] 20 mg PO DAILY 09/15/17 [History] Potassium Chloride [Klor-Con 10] 10 meq PO QTUTHSA 09/15/17 [History] Sennosides/Docusate Sodium [Senna Plus] 2 tab PO BID 09/15/17 [History] Simvastatin [Zocor] 40 mg PO HS 09/15/17 [History] Spironolactone [Aldactone] 25 mg PO DAILY 09/15/17 [History] Tramadol HCl [Ultram] 100 mg PO Q6H PRN 09/15/17 [History] traZODone [TraZODone] 50 mg PO HS 09/15/17 [History] Oxycodone HCl/Acetaminophen [Percocet 5-325 mg Tablet] 1 each PO Q6H PRN 7 Days #28 tablet 09/17/17 [Rx] Allergies/Adverse Reactions: 3 Allergy/AdvReac Type Severity Reaction Status Date / Time meperidine [From Demerol] AdvReac Intermediate Vomiting Verified 09/16/17 14:06 diphenhydramine AdvReac Mild See Verified 09/16/17 14:06 [From Benadryl] Comments Procedures/tests Complete & Pending: Procedures Performed prior 72 hours Category Date Time Status EKG [ECG 12 lead ECG] [ECG] Routine Y 09/16/17 10:29 Completed EV echocardiogram Routine Y 09/16/17 22:00 Completed Date of admission: 09/15/17 21:58 Primary care physician: Lisette Rodriguez MD Consults: 09/15/17 21:56 Consult to Orthopedic Surgery [CONS] Stat Consulting Provider: Orthopedic and Sports Medicine Reason for Consult: Right radial fracture, displaced Call Completed: Yes 09/15/17 22:03 Consult to Cardiology [CONS] Routine Comment: Consulting Provider: Cardiology Sharita Reason for Consult: Significant history of CAD, CHF, [place] in 07/2017, presented for Mechanical fall with radial fracture, please evlauate for surgery clearance Call Completed: No Discharging clinician: Sidney Yuan Anticipated date of discharge: 09/17/17 - Patient Status Disposition: Home, Self-Care Condition: Good Functional capacity at discharge: uses cane/walker Overall status at discharge: patient is not back to baseline - Discharge Instructions Instructions: Oxycodone/Acetaminophen (By mouth), Fall Prevention (DC) Follow Up With: Amandeep Lezn DO [Non-Partnered Physician] - (Call to scheduled follow up appointment with Dr. Lenz Sunday09/18/2017.) Lisette Rodriguez MD [Primary Care Provider] - Additional Instructions: 1. Follow-up with your primary care provider in the next 3-5 days 2. Take all prescriptions as prescribed, any concerns or questions contact her primary care provider. 3. Return to the emergency department if: Change in mental status, worsening right hand pain, change in vision, nausea vomiting diarrhea, worsening of muscle strength from baseline. Follow-up with orthopedics Dr. Lenz's office in 10days to 2 weeks as discussed for reevaluation of your right wrist - Diet and Activity Activity: ambulate only with your walker, increase activity as tolerated Diet: low fat, low cholesterol, low salt diet Interval History: Mrs. Le 87-year-old female admitted on 09/15/2017 with significant past medical history of diastolic heart failure, coronary artery disease, hyperlipidemia, hypertension and hypothyroidism and recent NSTEMI without intervention 3 weeks ago was transferred from an outside facility secondary to falling resulting in right wrist fracture and multiple lacerations and ecchymosis to the face. Upon admission she was evaluated by cardiology for preoperative evaluation with an echocardiogram demonstrate left jugular ejection fraction 60-65%, normal left ventricular chambers size and function, mild concentric left ventricular hypertrophy, mild left ventricular diastolic dysfunction, normal right ventricular structure and function. Mild aortic regurgitation. No evidence of pulmonary hypertension. A device lead was visualized in the right atrium and right ventricle. The patient was evaluated by orthopedic surgery who evaluated the x-rays and demonstrated that there was a slightly displaced fracture of the distal radius and ulnar styloid fracture. The risks and benefits of surgical intervention were discussed in after a long discussion it was agreed upon by both the patient, the patient's family in orthopedic surgery that nonoperative management would be adequate and she was placed in a fiberglass splint and would be reevaluated in 10 days to 2 weeks. During the inpatient stay the patient remained stable, placed on manager cardiac without any acute events during her inpatient stay. On the day of discharge she is evaluated and deemed stable for discharge home and continue on her current home medications. It was recommended that she be evaluated by physical therapy as she does have a chronic right foot drop and a fall with known cardiac issues. The patient who is competent and able to make decisions for herself has decided to decline evaluation and potential therapy. It was recommended that physical therapy evaluate this patient for which she continued to decline. It was highly recommended she follow-up with orthopedic surgery as recommended and with her disaster recovery specialist. She was prescribed 7 days of Percocet 5-325 one tablet every 6 hours when necessary for wrist pain Hospital course: Ms. Le is a 87 year old female - Time Spent with Patient Total time spent providing and/or coordinating discharge services: - Constitutional Vitals: Temp Pulse Resp BP Pulse Ox 98.2 F 59 14 129/60 97 09/17/17 07:35 09/17/17 07:35 09/17/17 07:35 09/17/17 07:35 09/17/17 07:35 General appearance: Present: cooperative, mild distress, A&O X 3, pleasant, answers questions appropriately Exam: General: Patient alert, awake, oriented 3, interactive, in no acute distress HEENT: Normocephalic, laceration to the left forehead with 2 stitches, ecchymosis across the forehead, ecchymosis in the inferior orbits, surrounding the nasal folds and down the left neck, 2 stitches in the right nasal crest, pupils equal reactive to light, nasal cavity patent and open septum median position, oral mucosa moist, uvula midline, neck supple trachea midline no palpable lymphadenopathy, no thyromegaly. Chest: Symmetric bilateral correlating with respiratory effort, effort nonlabored. Cardiac: Regular rate and rhythm, positive S1 and S2. no bruits appreciated bilateral carotids, capillary refill bilateral hands, less than 3 seconds. Respiratory: Clear to auscultation all lung quintero Abdomen: Soft, nontender, positive bowel sounds, no palpable masses appreciated on examination Extremities: Symmetric bilateral, bilateral lower extremities without erythema or edema, right lower extremity demonstrates 3 out of 5 muscle strength with dorsi flexion, weak plantar flexion and weak hip flexion on the right side. Left lower extremity 5 out of 5 muscle strength. Right upper extremity has a fiberglass cast involving the right wrist and forearm. Patient is able to wiggle her fingers and demonstrates neurovascular intact. Neurologic: No focal deficits appreciated on examination. Face symmetric, muscle strength symmetric bilateral upper and lower extremities. <Rm Hinton H - Last Filed: 09/17/17 17:13> Date of Encounter: 09/17/17 Procedures/tests Complete & Pending: Procedures Performed prior 72 hours Category Date Time Status EKG [ECG 12 lead ECG] [ECG] Routine Y 09/16/17 10:29 Completed EV echocardiogram Routine Y 09/16/17 22:00 Completed Date of admission: 09/15/17 20:09 Primary care physician: Lisette Rodriguez MD Consults: 09/15/17 21:56 Consult to Orthopedic Surgery [CONS] Stat Consulting Provider: Orthopedic and Sports Medicine Reason for Consult: Right radial fracture, displaced Call Completed: Yes 09/15/17 22:03 Consult to Cardiology [CONS] Routine Comment: Consulting Provider: Cardiology Sharita Reason for Consult: Significant history of CAD, CHF, [place] in 07/2017, presented for Mechanical fall with radial fracture, please evlauate for surgery clearance Call Completed: No 09/17/17 11:27 Consult to Occupational Therapy [CONS] Stat Comment: Evaluate, develop and implement POC Reason for Consult: s/p fall discharge planning Consult to Physical Therapy [CONS] Stat Comment: Evaluate, develop and implement POC Reason for Consult: s/p fall Hospital course: Ms. Le is a 87 year old female - Time Spent with Patient Total time spent providing and/or coordinating discharge services: - Constitutional Vitals: Temp Pulse Resp BP Pulse Ox 98.2 F 59 14 129/60 97 09/17/17 07:35 09/17/17 07:35 09/17/17 07:35 09/17/17 07:35 09/17/17 09:00 - Attending Attestation Refuses physical therapy evaluation, prefers to be discharged home at this point. Aware of the risks of falling Recent non-STEMI, needs to follow up with cardiology and to continue aspirin and Plavix, rejected the option to have a cardiac catheterization prior to her admission at a different facility. Follow-up with orthopedic surgery within the next 2 weeks Time spent on this discharge: 40 minutes I examined this patient and my medical decision-making was reviewed with the Resident Physician. I agree with the documented findings, disposition and treatment plan as described except to the extent set forth below.
--- NOTE | 2017-09-17 12:34 | Cardiology Progress Note ---
Date of Encounter: 09/17/17 Time of Encounter: 12:33 Assessment and Plan (1) Pre-operative cardiovascular examination Current Visit: Yes Status: Acute Pre-op risk stratification for right wrist fracture. Pt is not very active. Reports chronic dyspnea with minimal exertion. Known CAD, most recent PCI reported 09/2015. Records obtained from recent stay at [facility] 08/21/17. Peak troponin 0.11, presented with chest pain at that time. She became chest pain free after admission with no recurrence of pain. There was discussion of transfer elsewhere for [facility], but since she remained chest pain free with only mild troponin elevation, she was sent home with medical management. She has not had any recurrence of chest pain. Echo 08/23/17 EF 65-70%, mild AR and MR. [facility] 10/2015 patent LAD stents with otherwise no significant disease. Wrist fx has been decided to manage medically for now. No ischemic EKG changes. No further cardiac testing warranted. She would be intermediate risk if surgery is done, from cardiac standpoint. Follow-up as outpt. Pt okay with continued medical management, states she prefers conservative approach and is without acute cardiac complaints. Cardiology signing off. Reconsult PRN. (2) CAD (coronary artery disease) Current Visit: Yes Status: Chronic Hx of 3 stents, per pt, most recent 09/2015. ASA, Statin, BB. [facility] 10/2015 patent LAD stents, no significant disease otherwise. Echo 08/23/17 EF preserved. All above testing was [facility]. Qualifiers: Coronary Disease-Associated Artery/Lesion type: [place] artery [place] vs. transplanted heart: [place] heart Associated angina: with stable angina Qualified Code(s): I25.118 - Atherosclerotic heart disease of [place] coronary artery with other forms of angina pectoris (3) Pacemaker Current Visit: Yes Status: Acute Discussion w patient/family: The assessment and plan as outlined above was discussed with the patient and/or family members who expressed understanding and agreement. All questions were answered. Thank you for involving us in the care of your patient. Please call with any questions. I will discuss all the above with Dr. Diaz and make changes as necessary. Subjective Principal diagnosis: s/p fall, CAD Interval history: Pt denies chest pain or dyspnea. Reports feeling emotional. Reviewed orthopedic note. Plan is for medical management from their standpoint. [facility] records obtained and reviewed. [facility] 10/2015 patent LAD stents, otherwise no significant coronary disease. Troponin peak 0.11 during hospitalization 08/21. She remained chest pain free and that is why she was not transferred elsewhere for [facility] at that time. EF preserved on echo 08/24, 65-70%, mild MR and AR. Objective Vital Signs, Last 4 Hours Pulse Ox 09/17/17 09:00 97 Vital Signs Temp Pulse Resp BP Pulse Ox 09/17/17 09:00 97 09/17/17 07:35 98.2 F 59 14 129/60 97 09/17/17 05:12 62 15 122/54 97 09/16/17 21:39 98.6 F 63 14 112/50 96 Intake and Output 09/16/17 09/17/17 09/17/17 23:59 07:59 15:59 Intake Total 0 / 0 240 / 240 Balance 0 / 0 240 / 240 Intake: Oral 0 / 0 240 / 240 Other: Meal Breakfast Percent of Meal Consumed 100% # Voids 2 Weight 63.6 kg Patient Weight 09/17/17 23:59 Weight 63.6 kg General: Conversant, No Apparent Distress HEENT: Atraumatic, Normocephaly, Mucus Membranes Moist Neck: No JVD, Normal carotid pulses Cardiac: Reg Rate and Rhythm, Normal S1 and S2, No Murmur Lungs: Normal Breath Sounds, No Wheeze, Rales, Rhonchi Neuro: Alert and responsive, No focal deficits noted Abdomen: Soft, Non-Tender Skin: Other (facial contusions) Musculoskeletal: No Chest Wall Tenderness Extremities: No Clubbing, No Cyanosis, No Edema, Normal Pulses Results 09/17/17 02:26 09/17/17 02:26 Lab Results 09/17/17 09/17/17 02:26 02:26 WBC 8.7 Hgb 11.7 D Hct 34.5 L Plt Count 155 Sodium 134 L Potassium 3.9 Chloride 101 Carbon Dioxide 24 BUN 29 H Creatinine 1.49 H Glucose 99 Calcium 8.7 Short CBC 09/17/17 Range/Units 02:26 WBC 8.7 (4.3-11.1) K/mcL Hgb 11.7 D (11.5-15.4) g/dL Hct 34.5 L (35.3-44.9) % Plt Count 155 (140-400) K/mcL Neutrophils # 3.6 (1.6-8.9) K/mcL BMP 09/17/17 Range/Units 02:26 Sodium 134 L (136-145) mEq/L Potassium 3.9 (3.5-4.5) mEq/L Chloride 101 (98-109) mEq/L Carbon Dioxide 24 (19-29) mEq/L BUN 29 H (7-20) mg/dL Creatinine 1.49 H (0.57-1.11) mg/dL Glucose 99 (70-99) mg/dL Calcium 8.7 (8.6-10.8) mg/dL Urine 09/16/17 Range/Units 13:30 Urine Color Yellow (Yellow) Urine Clarity Clear (Clear) Urine pH 6.0 (5.0-8.0) pH Units Ur Specific [place] 1.016 (1.010-1.025) Urine Protein Negative (Neg-Trace) mg/dL Urine Glucose (UA) Normal (Normal) mg/dL Active Medications Acetaminophen (Tylenol) 650 mg PO Q6HR PRN PRN Reason: Mild Pain (1-3) Stop: 03/17/18 21:58 Hydrocodone Bitart/Acetaminophen ([place] 5-325 Mg) 1 tab PO Q4HR PRN PRN Reason: Moderate Pain (4-6) Stop: 03/17/18 21:58 Last Admin: 09/17/17 03:01 Dose: 1 tab Aspirin (Aspirin Ec) 81 mg PO DAILY [facility] Stop: 03/18/18 09:01 Last Admin: 09/17/17 09:01 Dose: 81 mg Atorvastatin Calcium (Lipitor) 40 mg PO HS [facility] Stop: 03/18/18 21:01 Last Admin: 09/16/17 20:33 Dose: 40 mg Carvedilol (Coreg) 3.125 mg PO BIDWM YUNG PRN Reason: Protocol Stop: 03/18/18 08:01 Last Admin: 09/17/17 09:01 Dose: 3.125 mg Furosemide (Lasix) 40 mg PO DAILY [facility] Stop: 03/18/18 09:01 Last Admin: 09/17/17 09:02 Dose: 40 mg Heparin Sodium (Porcine) (Heparin) 5,000 unit SQ Q8H [facility] Stop: 03/17/18 22:01 Last Admin: 09/17/17 05:50 Dose: 5,000 unit Isosorbide Mononitrate (Imdur) 30 mg PO DAILY [facility] Stop: 03/18/18 09:01 Last Admin: 09/17/17 09:02 Dose: 30 mg Levothyroxine Sodium (Synthroid) 25 mcg PO DAILY@0630 [facility] Stop: 03/18/18 06:31 Last Admin: 09/17/17 05:50 Dose: 25 mcg Melatonin (Melatonin) 3 mg PO HS PRN PRN Reason: Insomnia Stop: 03/17/18 22:03 Morphine Sulfate (Morphine Sulfate) 1 mg IVP Q6HR PRN PRN Reason: severe pain Stop: 03/18/18 11:04 Last Admin: 09/16/17 14:33 Dose: 1 mg Naloxone HCl (Narcan) 0.4 mg IVP Q2MIN PRN PRN Reason: Opioid Reversal Stop: 03/17/18 21:58 Omeprazole (Prilosec) 20 mg PO 0630 [facility] PRN Reason: Protocol Stop: 03/18/18 06:31 Last Admin: 09/17/17 05:50 Dose: 20 mg Oxycodone/Acetaminophen (Percocet 5/325) 1 each PO Q6HR PRN PRN Reason: Moderate Pain Stop: 03/18/18 08:21 Last Admin: 09/17/17 09:04 Dose: 1 each Spironolactone (Aldactone) 25 mg PO DAILY [facility] Stop: 03/18/18 09:01 Last Admin: 09/17/17 09:01 Dose: 25 mg Tramadol HCl (Ultram) 100 mg PO Q6H PRN PRN Reason: leg pain Stop: 03/18/18 13:08 Last Admin: 09/16/17 14:32 Dose: 50 mg Vitamin D (Vitamin D) 1,000 unit PO DAILY [facility] Stop: 03/18/18 09:01 Last Admin: 09/17/17 09:02 Dose: 1,000 unit - Imaging and Cardiology Echo: report reviewed Cardiac cath: report reviewed - EKG Interpretation EKG results cardiology: personally reviewed (paced, no ischemic changes), other (12 hr tele AVG HR 63, SR, no significant pauses or arrhythmias.) Consult Discharge Plan - Plan Instructions: Oxycodone/Acetaminophen (By mouth), Fall Prevention (DC) Additional Instructions: 1. Follow-up with your primary care provider in the next 3-5 days 2. Take all prescriptions as prescribed, any concerns or questions contact her primary care provider. 3. Return to the emergency department if: Change in mental status, worsening right hand pain, change in vision, nausea vomiting diarrhea, worsening of muscle strength from baseline. Follow-up with orthopedics Dr. Lenz's office in 10days to 2 weeks as discussed for reevaluation of your right wrist Referrals: Lisette Rodriguez MD [Primary Care Provider] -
--- NOTE | 2017-09-17 13:10 | Electrocardiograph Report ---
[address] [address] Test Date: 2017-09-16 Pat Name: Tammie Le Department: 111 Room: 2NE18 Gender: F [employer]: JUDIT : 1930 Requested By: Jeanmarie Peña Order Number: [id number] Reading MD: Elizabeth Carbone Measurements Intervals [place] Rate: 60 P: 124 MI: 169 QRS: -28 QRSD: 88 T: 66 QT: 436 QTc: 437 Interpretive Statements ELECTRONIC ATRIAL PACEMAKER BORDERLINE LEFT AXIS DEVIATION MODERATE VOLTAGE CRITERIA FOR LVH, CONSIDER NORMAL VARIANT ABNORMAL RHYTHM ECG Electronically Signed On 09-17-2017 12:55:28 EST by Elizabeth Carbone
== END 2017-09-17 16:12 | disposition home or self-care (01) ==
LOC: 2NENU
PROVIDERS: ADMIT Student in an Organized Health Care Education/Training Program; ATTEND Internal Medicine

== ENCOUNTER 2018-01-02 14:49 | Observation (INO) ==
[2018-01-02] MEDS ORDERED: Naloxone 0.4 MG/ML INJ IVP PRN (19:21)
--- NOTE | 2018-01-02 19:25 | Internal Med History&Physical ---
Date of Encounter: 01/02/18 Time of Encounter: 19:30 Assessment and Plan (1) Chest pain Current visit: Yes Status: Suspected Patient presenting with chest pain. Concerning for ACS given her history of TX and coronary artery disease. She has had coronary artery stents in the past with the last one in 2014. Continue nitro drip and IV heparin drip. Will consult cardiology for further recommendations. Keep nothing by mouth in case she needs left heart catheterization tomorrow. Will get 2-D echocardiogram. Trend troponins. Monitor with telemetry. Qualifiers: Chest pain type: chest pain due to myocardial ischemia Ischemic chest pain type: unstable angina pectoris Qualified Code(s): I20.0 - Unstable angina (2) CAD (coronary artery disease) Current visit: Yes Status: Chronic Continue aspirin, simvastatin and Plavix. Patient presenting with chest pain. We will check lipid profile. Qualifiers: Coronary Disease-Associated Artery/Lesion type: [place] artery [place] vs. transplanted heart: [place] heart Associated angina: with stable angina Qualified Code(s): I25.118 - Atherosclerotic heart disease of [place] coronary artery with other forms of angina pectoris (3) CKD (chronic kidney disease) stage 3, GFR 30-59 ml/min Current visit: Yes Status: Chronic Patient with history of chronic kidney disease stage III. Creatinine 1.12 today. At baseline. Follow renal function closely. Consider nephrology consult if patient needs left heart catheterization. (4) DVT prophylaxis Current visit: Yes Status: Acute Patient on IV heparin (5) Essential hypertension Current visit: Yes Status: Chronic Monitor blood pressure. Continue home medications. (6) Congestive heart failure Current visit: Yes Status: Chronic Patient with history of chronic diastolic dysfunction. Appears to be well compensated at this time. We will use Lasix as needed. Qualifiers: Heart failure type: diastolic Heart failure chronicity: chronic Qualified Code(s): I50.32 - Chronic diastolic (congestive) heart failure Internal Medicine - H&P: HPI Chief complaint: Chest pain Admitted From: Emergency Dept Plans for Post Hospital Care: Home History of present illness: Ms. Le is a 87 year old female patient with history of coronary artery disease , TX, hypertension, permanent pacemaker and AICD placement presented to the ER at [facility] with complaints of chest pain that began this morning. Pain is located in the left upper part of her chest and radiating to her shoulder and to the left jaw. Pain was rated at 6 out of 10 in severity. She received nitroglycerin with some improvement in her chest pain and she is now been placed on intravenous nitroglycerin drip and transferred here. Presently she says that her chest pain did ease up since it began this morning but is now starting to trend upwards again. She denies any dizziness or lightheadedness. No shortness of breath currently. No fever or chills. She reports that she had an TX in July of last year and at that time had refused left heart catheterization due to complications during her prior procedure. She is now willing to undergo left heart catheterization if needed. Past Med Surg Social Fam HX - Past Medical History Attestation: Yes The following information was validated with the patient. Source: patient, obtained from family Medical history: CHF, coronary artery disease, hyperlipidemia, hypertension, thyroid disease Psychiatric history: no psych history - Past Surgical History Surgical History: angioplasty/stent, appendectomy, breast surgery, hysterectomy - Social History Smoking Status: Never smoker Smokeless Tobacco Status: No Alcohol use: none Drug use: none - Family History Mother Family Member Ethnicity: Non- Living Status: Hx Family Cardiac Disorders: Yes Father Living Status: Internal Medicine - H&P: Meds Aspirin [Lo-Dose Aspirin EC] 81 mg PO DAILY 09/15/17 [History] Carvedilol 3.125 mg PO BID 09/15/17 [History] Cholecalciferol (Vitamin D3) [Vitamin D] 1,000 unit PO DAILY 09/15/17 [History] Clopidogrel [Plavix] 75 mg PO DAILY 09/15/17 [History] Furosemide [Lasix] 40 mg PO [id number] 09/15/17 [History] Isosorbide MONOnitrate (24 HR) [Imdur] 30 mg PO DAILY 09/15/17 [History] Levothyroxine [Synthroid] 25 mcg PO 0630 09/15/17 [History] Melatonin/Herbal Complex #184 [Melatonin + l-Theanine Softgel] 5 mg PO HS [History] Multivit-Min/Iron Fum/Folic AC [Ylvuj-Oyzelth-Fbbxvtwl Tablet] 1 tab PO DAILY [History] Omeprazole [PriLOSEC] 20 mg PO DAILY 09/15/17 [History] Potassium Chloride [Klor-Con 10] 40 meq PO QTUTHSA 09/15/17 [History] Sennosides/Docusate Sodium [Senna Plus] 2 tab PO BID 09/15/17 [History] Simvastatin [Zocor] 40 mg PO HS 09/15/17 [History] Spironolactone [Aldactone] 25 mg PO DAILY 09/15/17 [History] Tramadol HCl [Ultram] 100 mg PO Q6H PRN 09/15/17 [History] traZODone [TraZODone] 50 mg PO HS 09/15/17 [History] 3 Allergy/AdvReac Type Severity Reaction Status Date / Time meperidine [From Demerol] AdvReac Intermediate Vomiting Verified 09/16/17 14:06 diphenhydramine AdvReac Mild See Verified 09/16/17 14:06 [From Benadryl] Comments All Systems PM: A 10-system review of systems was performed and is negative for pertinent findings except as documented above in the HPI. - Constitutional Constitutional: no chills, no fever(s), no night sweats - EENT Eyes: no change in vision, no discharge, no pain, no photophobia Ears: no ear discharge, no ear pain, no tinnitus Nose, mouth and throat: no dysphagia, no nasal discharge, no neck pain, no sore throat - Cardiovascular Cardiovascular ROS IM: chest pain, no diaphoresis, no dyspnea, no lightheadedness, no palpitations, no syncope - Respiratory Respiratory: no cough, no dyspnea, no wheezing, no excessive phlegm production - Gastrointestinal Gastrointestinal: no abdominal pain, no diarrhea, no hematemesis, no hematochezia, no melena, no nausea, no vomiting - Genitourinary Genitourinary: no change in urinary stream, no dysuria, no flank pain, no hematuria - Musculoskeletal Musculoskeletal ROS IM: no numbness, no tingling - Integumentary Integumentary IM: no rash, no unusual bruising - Neurological Neurological ROS: no confusion, no convulsions, no focal weakness, no numbness, no tingling, no tremor(s) - Constitutional Vitals: Temp Pulse Resp BP Pulse Ox 97.8 F 71 16 157/78 94 01/02/18 18:57 01/02/18 18:57 01/02/18 18:57 01/02/18 18:57 01/02/18 18:57 General appearance: Present: cooperative, A&O X 3, answers questions appropriately - Neck Neck exam general surgery: Present: supple, trachea midline. Absent: lymphadenopathy - Respiratory Respiratory exam: Present: CTAB. Absent: accessory muscle use, rales, rhonchi, wheezes - Cardiovascular Cardiovascular exam: Present: RRR, +S1, +S2. Absent: diastolic murmur, gallop, rubs, systolic murmur - GI/Abdominal GI/Abdominal exam: Present: normal bowel sounds, soft, no peritoneal signs. Absent: distended, tenderness - Extremities Exam Extremities exam: Present: warm, radial pulses palpable and symmetrical. Absent : calf tenderness, cyanotic, pedal edema - Neurological Exam Neurological exam: Present: CN II-XII intact, oriented X3, no focal deficits. Absent: facial droop, speech deficit - Skin Skin exam: Present: dry, intact Internal Med - H&P Results - Labs Labs: Troponin less than 0.03, sodium 136, potassium 4.1, BUN 11, creatinine 1.12 - EKG Data -: EKG Interpreted by Myself - EKG Data EKG comments: 01/02/18 19:53 Paced rhythm - Impressions Chest x-ray shows no acute infiltrate
[2018-01-02] MEDS ORDERED: *HR* Heparin 5,000 UNIT/ML VIAL IVP PRN ×2 (19:46)
[2018-01-02] MEDS ORDERED: Nitroglycerin 25 MG/250 ML INFUS..BTL IVC SCH (20:00)
[2018-01-02] MEDS ORDERED: Heparin 25,000 UNIT/500 ML D5W 25,000 UNIT/500 ML BAG IVC SCH (20:00)
[2018-01-02] MEDS: traZODone 50 MG TABLET PO SCH (21:18)
[2018-01-02] MEDS: Acetaminophen 325 MG TABLET PO PRN (21:22)
[2018-01-03 01:23] LABS: Basophils # 0.1 K/mcL (0.0-0.2); Basophils % 0.7 %; Eosinophils # 0.3 K/mcL (0.0-0.6); Hematocrit 38.6 % (35.3-44.9); Hemoglobin 13.3 g/dL (11.5-15.4); Immature Granulocytes % 0.1 % (0-4); Lymphocytes # 3.3 K/mcL (0.6-4.6); Mean Corpuscular HGB Conc 34.5 g/dL (31.6-35.5); Mean Corpuscular Hemoglobin 29.1 pg (28.0-33.3); Mean Corpuscular Volume 84.5 fL (83.0-100.0); Mean Platelet Volume 9.5 fL (9.4-12.4); Monocytes # 0.8 K/mcL (0.0-1.3); Monocytes % 12.2 %; Neutrophils # 2.3 K/mcL (1.6-8.9); Platelet Count 139 K/mcL (140-400); Red Blood Count 4.57 M/mcL (3.82-4.97)
[2018-01-03 01:46] LABS: BUN/Creatinine Ratio 10 (6-26); Blood Urea Nitrogen 11 mg/dL (8-23); Calcium 9.2 mg/dL (8.6-10.3); Carbon Dioxide 29 mEq/L (23-29); Chloride 106 mEq/L (98-107); Cholesterol 104 mg/dL (< 200); Glucose 121 mg/dL (70-105); HDL Cholesterol 35 mg/dL (40-59); LDL Cholesterol,Calculated 48 mg/dL (0-99); Osmolality,Calculated 291 (280-300); Potassium 3.6 mEq/L (3.5-5.1); Sodium 140 mEq/L (136-145); Triglycerides 104 mg/dL (< 150); eGFR For African Americans > 60 (> 60); eGFR For Non-African Americans 50 (> 60)
[2018-01-03 05:55] LABS: Activated Partial Thrombo Time 203.6 Seconds (26.0-36.0)
[2018-01-03 06:05] LABS: Heparin anti-factor XA UFH 0.94 IU/mL (0.30-0.70)
[2018-01-03] MEDS: Aspirin Enteric Coated 81 MG Tablet PO SCH (08:32)
--- NOTE | 2018-01-03 08:43 | Internal Med Progress Note ---
Date of Encounter: 01/03/18 Time of Encounter: 08:43 - Subjective Interval history: Interval changes: No cp this am but had sensations of palpitations/rapid rhythm No new complaints A&P: 1) Chest pain History of CAD Trend Eliz Echo pending Continue Heparin drip Continue Aspirin, statin, Plavix, BB Cardiology consulted Lipid panel ECG Atrial paced rhythm No ischemic changes (2) CKD (chronic kidney disease) stage 3, GFR 30-59 ml/min Continue IVFs (3) Hx of PPM: [place] rapid rhythm with palpitations this am Atrial paced rhythm on ECG and Telemetry (4) Essential hypertension: Continue home meds - Constitutional Vitals: Temp Pulse Resp BP Pulse Ox 97.6 F 60 16 153/71 95 01/03/18 06:58 01/03/18 08:41 01/03/18 08:41 01/03/18 08:41 01/03/18 06:58 General appearance: Present: cooperative, A&O X 3, pleasant, answers questions appropriately - Head Head exam: Present: atraumatic, normocephalic - Eye Eye exam: Present: PERRL, conjuntiva pink, sclera anicteric Pupils: Present: PERRL - Neck Neck exam general surgery: Present: supple, trachea midline. Absent: lymphadenopathy - Respiratory Respiratory exam: Present: CTAB. Absent: accessory muscle use, rales, rhonchi, wheezes - Cardiovascular Cardiovascular exam: Present: RRR, +S1, +S2. Absent: diastolic murmur, gallop, rubs, systolic murmur - GI/Abdominal GI/Abdominal exam: Present: normal bowel sounds, soft, no peritoneal signs. Absent: distended, tenderness - Extremities Exam Extremities exam: Present: warm, radial pulses palpable and symmetrical. Absent : calf tenderness, cyanotic, pedal edema - Neurological Exam Neurological exam: Present: CN II-XII intact, oriented X3, no focal deficits. Absent: pronater drift, facial droop, speech deficit - Skin Skin exam: Present: dry, intact Internal Medicine: Result - Labs CBC & Chem 7: 01/03/18 01:09 01/03/18 01:09 Labs: Short CBC 01/03/18 Range/Units 01:09 WBC 6.7 (4.3-11.1) K/mcL Hgb 13.3 (11.5-15.4) g/dL Hct 38.6 (35.3-44.9) % Plt Count 139 L (140-400) K/mcL Neutrophils # 2.3 (1.6-8.9) K/mcL BMP 01/03/18 01:09 Sodium 140 Potassium 3.6 Chloride 106 Carbon Dioxide 29 BUN 11 Creatinine 1.05 Glucose 121 H Calcium 9.2 Cardiac Enzymes 01/02/18 01/03/18 Range/Units 20:08 01:09 Troponin I < 0.03 < 0.03 (< 0.04) ng/mL Consult Discharge Plan - Plan Referrals: Lisette Rodriguez MD [Primary Care Provider] -
[2018-01-03] MEDS ORDERED: Isosorbide MONOnitrate (24 HR) 30 MG TAB.ER.24H PO SCH (09:00)
[2018-01-03] MEDS ORDERED: Spironolactone 25 MG TABLET PO SCH (09:00)
--- NOTE | 2018-01-03 10:27 | Cardiology Consult Note ---
<Kathi Caputo - Last Filed: 01/03/18 10:50> Date of Encounter: 01/03/18 Time of Encounter: 09:45 Assessment and Plan (1) Chest pain Current Visit: Yes Status: Acute Per cardiology: -Admitted with chest pain. -Reports chest pain occured at rest and was somewhat different than her previous. -Troopnins negative x4. -No acute ischemic ECG changes. -Denies current chest pain. -ON heparin, nitro drip. -TRoponins negative x4, denies current chest pain, will stop heparin and nitro drips -Discussed at length with patient, agreeable for stress test. Of note, had imdur this am, Stress will have to be schedule for tomorrow. Patient and daughter updated. -Plan for non-excercise nuclear stress in am. -Will continue to monitor. Qualifiers: Chest pain type: unspecified Qualified Code(s): R07.9 - Chest pain, unspecified (2) CAD (coronary artery disease) Current Visit: Yes Status: Chronic Per cardiology: -KNown CAD s/p PCI. -Last [facility] 2014 with intervention. -ON asa, statin, beta kevan, imdur. -TTE 08/2017 with LVEF 60-65%, mild concentric LVH, mild diastolic dysfunction, mild AR, no segmental wall motion abnormalities noted. -PLan for stress in am as above. Qualifiers: Coronary Disease-Associated Artery/Lesion type: [place] artery [place] vs. transplanted heart: [place] heart Associated angina: with unspecified angina Qualified Code(s): I25.119 - Atherosclerotic heart disease of [place] coronary artery with unspecified angina pectoris (3) Pacemaker Current Visit: No Status: Acute Per cardiology: -Pateint reports feelings of palpitations/fluttering, near syncope. -Device interrogated with normal functioning device. No sustained arrythmias noted. -No arrythmias noted per telemetry. -Will continue to monitor. -Will repeat limited TTE. Discussion w patient/family: The assessment and plan as outlined above was discussed with the patient and/or family members who expressed understanding and agreement. All questions were answered. Thank you for involving us in the care of your patient. Please call with any questions. Discussed and reviewed with Dr.John Arenas. History of Present Illness Consult date: 01/02/18 Requesting physician: Sara Ray Consult reason: chest pain Chief complaint: chest pain History of present illness: Ms. Le is a 87 year old female with a relevant past medical history of [place], CAD s/p PCI, permanent pacemaker. Patient presented to [facility] for complaints of chest pain. Patient reports chest pain started while sitting in [place] drinking coffee. Patient reports this pain started in left shoulder, then radiated to left chest. States pain was somewhat different from previous angina. Patinet denies aggravating or alleviating factros. Reports she took 3 nitro at home with no relief of symptoms. Patient reports some increase in shortness of breath. States fatigue is about baseline. Denies current chest pain. Of note, pateint reports earlier this morning had an episode where she felt like she was "going to pass out." Patient also reports episodes of palpitations/fluttering. Past Med Surg Social Fam HX - Past Medical History Attestation: Yes The following information was validated with the patient. Source: patient, old records reviewed, obtained from family Medical history: cancer, CHF, coronary artery disease, GERD, hyperlipidemia, hypertension, renal disease Psychiatric history: no psych history - Past Surgical History Surgical History: angioplasty/stent, appendectomy, breast surgery, cancer surgery, cholecystectomy, hysterectomy, orthopedic, other, AICD, pacemaker - Social History Smoking Status: Never smoker Smokeless Tobacco Status: No Alcohol use: none Drug use: none - Family History Mother Family Member Ethnicity: Non- Living Status: Age at : 92 Cause of : CVA from a-fib Hx Family Cardiac Disorders: Yes (HTN, a-fib) Hx Family Neurologic Disorders: Yes (CVA) Father Family Member Ethnicity: Non- Living Status: Age at : 59 Cause of : Pancreatic cancer Hx Family Cancer: Yes (Pancreatic cancer) Medications and Allergies Aspirin [Lo-Dose Aspirin EC] 81 mg PO DAILY 09/15/17 [History] Carvedilol 3.125 mg PO BID 09/15/17 [History] Cholecalciferol (Vitamin D3) [Vitamin D] 1,000 unit PO DAILY 09/15/17 [History] Clopidogrel [Plavix] 75 mg PO DAILY 09/15/17 [History] Furosemide [Lasix] 40 mg PO DAILY PRN 09/15/17 [History] Isosorbide MONOnitrate (24 HR) [Imdur] 30 mg PO DAILY 09/15/17 [History] Levothyroxine [Synthroid] 25 mcg PO 0630 09/15/17 [History] Multivit-Min/Iron Fum/Folic AC [Nzocf-Ooialkc-Pqckqxnt Tablet] 1 tab PO DAILY [History] Omeprazole [PriLOSEC] 20 mg PO DAILY 09/15/17 [History] Potassium Chloride [Klor-Con 10] 40 meq PO DAILY PRN 09/15/17 [History] Sennosides/Docusate Sodium [Senna Plus] 2 tab PO BID 09/15/17 [History] Simvastatin [Zocor] 40 mg PO HS 09/15/17 [History] Spironolactone [Aldactone] 25 mg PO DAILY 09/15/17 [History] Tramadol HCl [Ultram] 100 mg PO Q6H PRN 09/15/17 [History] traZODone [TraZODone] 50 mg PO HS 09/15/17 [History] Melatonin 5 mg PO HS 01/03/18 [History] 3 Allergy/AdvReac Type Severity Reaction Status Date / Time meperidine [From Demerol] AdvReac Intermediate Vomiting Verified 09/16/17 14:06 diphenhydramine AdvReac Mild See Verified 09/16/17 14:06 [From Benadryl] Comments All Systems Review: The remainder of the systems were reviewed and are negative - Constitutional Constitutional: fatigue - Cardiovascular Cardiovascular: as per HPI, chest pain at rest, dyspnea on exertion, lightheadedness, palpitations Physical Examination Vital Signs, Last 4 Hours Temp Pulse Resp BP Pulse Ox 01/03/18 08:41 60 16 153/71 01/03/18 06:58 97.6 F 61 15 107/52 95 General: Conversant, No Apparent Distress HEENT: Atraumatic, Normocephaly, Mucus Membranes Moist Neck: No JVD, Normal carotid pulses Cardiac: Reg Rate and Rhythm, Normal S1 and S2, No Murmur Lungs: Normal Breath Sounds, No Wheeze, Rales, Rhonchi Neuro: Alert and responsive, No focal deficits noted Abdomen: Soft, Non-Tender Skin: No rashes noted on visualized skin Musculoskeletal: No Chest Wall Tenderness Extremities: No Clubbing, No Cyanosis, No Edema, Normal Pulses Results 01/03/18 01:09 01/03/18 01:09 Lab Results Active Medications Acetaminophen (Tylenol) 650 mg PO Q6HR PRN PRN Reason: Mild Pain/Fever Stop: 07/04/18 19:22 Last Admin: 01/02/18 21:22 Dose: 650 mg Aspirin (Aspirin Ec) 81 mg PO DAILY YUNG Stop: 07/05/18 09:01 Last Admin: 01/03/18 08:32 Dose: 81 mg Carvedilol (Coreg) 3.125 mg PO BID YUNG Stop: 07/04/18 21:01 Last Admin: 01/03/18 08:32 Dose: 3.125 mg Clopidogrel Bisulfate (Plavix) 75 mg PO DAILY YUNG Stop: 07/05/18 09:01 Last Admin: 01/03/18 08:32 Dose: 75 mg Furosemide (Lasix) 40 mg PO QMWFSU YUNG Stop: 07/06/18 09:01 Heparin Sodium (Porcine) (Heparin) 3,600 unit 60 unit/kg (3600 unit) IVP Q6HR PRN PRN Reason: SEE COMMENTS Stop: 07/04/18 19:47 Heparin Sodium (Porcine) (Heparin) 1,800 unit 30 unit/kg (1800 unit) IVP Q6H PRN PRN Reason: SEE COMMENTS Stop: 07/04/18 19:47 Last Admin: 01/02/18 23:10 Dose: 1,800 unit Heparin Sodium/Dextrose (Heparin 25,000 Unit/500 Ml D5w) 25,000 unit in 500 mls @ 14.448 mls/hr IVC .Q24H YUNG; 12 UNIT/KG/HR PRN Reason: Protocol Stop: 07/04/18 20:01 Last Titration: 01/03/18 06:57 Dose: 11 unit/kg/hr, 13.244 mls/hr Nitroglycerin (Nitroglycerin Premix 25 Mg/250 Ml) 25 mg in 250 mls @ 3 mls/hr IVC .Q24H YUNG; 5 MCG/MIN PRN Reason: Protocol Stop: 07/04/18 20:01 Last Titration: 01/03/18 05:07 Dose: 5 mcg/min, 3 mls/hr Isosorbide Mononitrate (Imdur) 30 mg PO DAILY YUNG Stop: 07/05/18 09:01 Last Admin: 01/03/18 08:32 Dose: 30 mg Naloxone HCl (Narcan) 0.4 mg IVP Q2MIN PRN PRN Reason: SEE COMMENTS Stop: 07/04/18 19:22 Simvastatin (Zocor) 40 mg PO HS YUNG PRN Reason: Protocol Stop: 07/04/18 21:01 Last Admin: 01/02/18 21:18 Dose: 40 mg Spironolactone (Aldactone) 25 mg PO DAILY YUNG Stop: 07/05/18 09:01 Tramadol HCl (Ultram) 100 mg PO Q6H PRN PRN Reason: leg pain Stop: 07/04/18 19:23 Trazodone HCl (Trazodone) 50 mg PO HS YUNG Stop: 07/04/18 21:01 Last Admin: 01/02/18 21:18 Dose: 50 mg Laboratory Tests 01/02/18 01/02/18 01/03/18 11:08 20:08 01:09 Hgb Plt Count Creatinine Troponin I < 0.03 < 0.03 < 0.03 01/03/18 01/03/18 01/03/18 01:09 01:09 09:16 Hgb 13.3 Plt Count 139 L Creatinine 1.05 Troponin I < 0.03 - Imaging and Cardiology Chest Xray: report reviewed Echo: report reviewed Cardiac cath: report reviewed - EKG Interpretation EKG results cardiology: personally reviewed (ECG with atrial pacing.), other ( Telemetry reviewed with average HR previous 12 hours noted to be 61, paced rhythm. PACs noted.) Consult Discharge Plan - Plan Referrals: Lisette Rodriguez MD [Primary Care Provider] - <Clayton Arenas - Last Filed: 01/03/18 14:49> Date of Encounter: 01/03/18 - Attending Attestation I have personally performed a face to face evaluation on this patient. I have reviewed and agree with the care plan. History and Exam by me shows: Chest pain with TREY negative. Plan for stress test in AM. Assessment and Plan Discussion w patient/family: The assessment and plan as outlined above was discussed with the patient and/or family members who expressed understanding and agreement. All questions were answered. Thank you for involving us in the care of your patient. Please call with any questions. History of Present Illness History of present illness: Ms. Le is a 87 year old female All Systems Review: The remainder of the systems were reviewed and are negative Physical Examination Vital Signs, Last 4 Hours Temp Pulse Resp BP Pulse Ox 01/03/18 11:32 97.6 F 59 14 114/68 96 Results 01/03/18 01:09 01/03/18 01:09 Lab Results 01/02/18 01/02/18 01/03/18 20:08 20:08 01:09 WBC Hgb Hct Plt Count APTT 55.5 H D Sodium Potassium Chloride Carbon Dioxide BUN Creatinine Glucose Calcium Troponin I < 0.03 < 0.03 01/03/18 01/03/18 01/03/18 01:09 01:09 05:08 WBC 6.7 Hgb 13.3 Hct 38.6 Plt Count 139 L APTT 203.6 H* D Sodium 140 Potassium 3.6 Chloride 106 Carbon Dioxide 29 BUN 11 Creatinine 1.05 Glucose 121 H Calcium 9.2 Troponin I 01/03/18 09:16 WBC Hgb Hct Plt Count APTT Sodium Potassium Chloride Carbon Dioxide BUN Creatinine Glucose Calcium Troponin I < 0.03
[2018-01-03] MEDS: traMADol 50 MG TABLET PO PRN (13:58)
[2018-01-03] MEDS ORDERED: Sennosides 8.6 MG TABLET PO SCH (21:15)
[2018-01-03] MEDS ORDERED: Melatonin 3 MG TABLET PO SCH (21:15)
[2018-01-03] MEDS: traZODone 50 MG TABLET PO SCH (21:24)
[2018-01-04] MEDS ORDERED: Regadenoson 0.4 MG/5 ML SYRINGE IVP ONE (05:41)
[2018-01-04 07:37] VITALS: BP 123/67
[2018-01-04 07:37] LABS: Basophils # 0.1 K/mcL (0.0-0.2); Basophils % 0.9 %; Eosinophils # 0.3 K/mcL (0.0-0.6); Eosinophils % 4.6 %; Hematocrit 42.6 % (35.3-44.9); Hemoglobin 14.5 g/dL (11.5-15.4); Immature Granulocytes % 0.4 % (0-4); Lymphocytes # 2.2 K/mcL (0.6-4.6); Lymphocytes % 40.7 %; Mean Corpuscular Hemoglobin 28.8 pg (28.0-33.3); Mean Corpuscular Volume 84.7 fL (83.0-100.0); Mean Platelet Volume 9.7 fL (9.4-12.4); Monocytes # 0.7 K/mcL (0.0-1.3); Monocytes % 12.3 %; Neutrophils # 2.2 K/mcL (1.6-8.9); Platelet Count 178 K/mcL (140-400); Red Blood Count 5.03 M/mcL (3.82-4.97); Red Cell Distribution Width 13.2 % (11.5-14.5); Segmented Neutrophils % 41.1 %
[2018-01-04 07:45] LABS: BUN/Creatinine Ratio 14 (6-26); Blood Urea Nitrogen 15 mg/dL (8-23); Calcium 9.8 mg/dL (8.6-10.3); Carbon Dioxide 25 mEq/L (23-29); Chloride 105 mEq/L (98-107); Glucose 115 mg/dL (70-105); Osmolality,Calculated 286 (280-300); Potassium 3.9 mEq/L (3.5-5.1); Sodium 137 mEq/L (136-145); eGFR For African Americans > 60 (> 60); eGFR For Non-African Americans 50 (> 60)
[2018-01-04] MEDS: traMADol 50 MG TABLET PO PRN (08:30)
[2018-01-04] MEDS ORDERED: Furosemide 40 MG TABLET PO SCH (09:00)
[2018-01-04] MEDS: Acetaminophen 325 MG TABLET PO PRN (12:37)
[2018-01-04] MEDS: Aspirin Enteric Coated 81 MG Tablet PO SCH (12:38)
--- NOTE | 2018-01-04 13:37 | Discharge Summary ---
Orders not resulted at time of discharge: Pending orders 01/04/18 08:30 NM susan perf SPECT multi [NM] Routine Date of Encounter: 01/04/18 Time of Encounter: 13:34 Hospital course: Ms. Le is a 87 year old female Discharge discussed with: patient, family, nurse, social work Time spent discussing smoking cessation with patient: more than 10 minutes - Time Spent with Patient Total time spent providing and/or coordinating discharge services: Greater than 30 minutes - Discharge Medications Home Medications: Aspirin [Lo-Dose Aspirin EC] 81 mg PO DAILY 09/15/17 [History] Carvedilol 3.125 mg PO BID 09/15/17 [History] Cholecalciferol (Vitamin D3) [Vitamin D3] 1,000 unit PO DAILY 09/15/17 [History] Clopidogrel [Plavix] 75 mg PO DAILY 09/15/17 [History] Furosemide [Lasix] 40 mg PO DAILY PRN 09/15/17 [History] Isosorbide MONOnitrate (24 HR) [Imdur] 30 mg PO DAILY 09/15/17 [History] Levothyroxine [Synthroid] 25 mcg PO 0630 09/15/17 [History] Multivit-Min/Iron Fum/Folic AC [Gqwfi-Xpgnjdp-Cmpuqdxy Tablet] 1 tab PO DAILY [History] Omeprazole [PriLOSEC] 20 mg PO DAILY 09/15/17 [History] Potassium Chloride [Klor-Con 10] 40 meq PO DAILY PRN 09/15/17 [History] Sennosides/Docusate Sodium [Senna Plus] 2 tab PO BID 09/15/17 [History] Simvastatin [Zocor] 40 mg PO HS 09/15/17 [History] Spironolactone [Aldactone] 25 mg PO DAILY 09/15/17 [History] Tramadol HCl [Ultram] 100 mg PO Q6H PRN 09/15/17 [History] traZODone [TraZODone] 50 mg PO HS 09/15/17 [History] Melatonin 5 mg PO HS 01/03/18 [History] Allergies/Adverse Reactions: 3 Allergy/AdvReac Type Severity Reaction Status Date / Time meperidine [From Demerol] AdvReac Intermediate Vomiting Verified 09/16/17 14:06 diphenhydramine AdvReac Mild See Verified 09/16/17 14:06 [From Bengigil] Comments Date of admission: 01/02/18 18:48 Primary care physician: Lisette Rodriguez MD Consults: 01/02/18 20:01 Consult to Cardiology [CONS] Routine Comment: Consulting Provider: Cardiology [place] Reason for Consult: Chest pain ? ACS Call Completed: Yes 01/03/18 06:47 Consult to Pastoral Services [CONS] Routine Comment: - Constitutional Vitals: Temp Pulse Resp BP Pulse Ox 97.7 F 65 18 123/67 96 01/04/18 07:00 01/04/18 07:00 01/04/18 07:00 01/04/18 07:00 01/04/18 08:38 General appearance: Present: cooperative, A&O X 3, pleasant, answers questions appropriately - Head Head exam: Present: atraumatic, normocephalic - Eye Eye exam: Present: PERRL, conjuntiva pink, sclera anicteric Pupils: Present: PERRL - Neck Neck exam general surgery: Present: supple, trachea midline. Absent: lymphadenopathy - Respiratory Respiratory exam: Present: CTAB. Absent: accessory muscle use, rales, rhonchi, wheezes - Cardiovascular Cardiovascular exam: Present: RRR, +S1, +S2. Absent: diastolic murmur, gallop, rubs, systolic murmur - GI/Abdominal GI/Abdominal exam: Present: normal bowel sounds, soft, no peritoneal signs. Absent: distended, tenderness - Extremities Exam Extremities exam: Present: warm, radial pulses palpable and symmetrical. Absent : calf tenderness, cyanotic, pedal edema - Neurological Exam Neurological exam: Present: CN II-XII intact, oriented X3, no focal deficits. Absent: pronater drift, facial droop, speech deficit - Skin Skin exam: Present: dry, intact - Patient Status Disposition: Home, Self-Care - Discharge Instructions Instructions: Heart Failure (DC), Chronic Hypertension (DC), Fall Prevention ( DC) Follow Up With: Lisette Rodriguez MD [Primary Care Provider] - (please call office for post hospital discharge appointment on 01/07/18)
--- NOTE | 2018-01-04 14:16 | Cardiology Progress Note ---
Date of Encounter: 01/04/18 Time of Encounter: 14:13 Assessment and Plan (1) Chest pain Current Visit: Yes Status: Acute Per cardiology: -Admitted with chest pain. -Reports chest pain occured at rest and was somewhat different than her previous. -Troopnins negative x4. -No acute ischemic ECG changes. -Denies current chest pain or chest pain overnight. -TTE with LVEF preserved, no segmental wall motion abnormalities. -Stress negative for ischemia or infarct. -Cardiology will sign off and will follow in outpatient setting. Follow up set. Qualifiers: Chest pain type: unspecified Qualified Code(s): R07.9 - Chest pain, unspecified (2) CAD (coronary artery disease) Current Visit: Yes Status: Chronic Per cardiology: -KNown CAD s/p PCI. -Last [facility] 2014 with intervention. -ON asa, statin, beta kevan, imdur. -TTE 08/2017 with LVEF 60-65%, mild concentric LVH, mild diastolic dysfunction, mild AR, no segmental wall motion abnormalities noted. -Will monitor in outpatient setting. Qualifiers: Coronary Disease-Associated Artery/Lesion type: [place] artery [place] vs. transplanted heart: [place] heart Associated angina: with unspecified angina Qualified Code(s): I25.119 - Atherosclerotic heart disease of [place] coronary artery with unspecified angina pectoris (3) Pacemaker Current Visit: No Status: Acute Per cardiology: -Pateint reports feelings of palpitations/fluttering, near syncope. -Device interrogated with normal functioning device. No sustained arrythmias noted. -No arrythmias noted per telemetry. Discussion w patient/family: The assessment and plan as outlined above was discussed with the patient and/or family members who expressed understanding and agreement. All questions were answered. Thank you for involving us in the care of your patient. Please call with any questions. Discussed and reviewed with Dr.John Arenas. Subjective Principal diagnosis: chest pain Interval history: Denies chest pain, palpitations overnight. Patient states she wants to go home. Objective Vital Signs Temperature 97.8 F 01/02/18 18:57 Pulse Rate 71 01/02/18 18:57 Respiratory Rate 16 01/02/18 18:57 Blood Pressure 157/78 01/02/18 18:57 O2 Sat by Pulse Oximetry 94 01/02/18 18:57 Temperature 97.7 F 01/04/18 07:00 Pulse Rate 65 01/04/18 07:00 Respiratory Rate 18 01/04/18 07:00 Blood Pressure 123/67 01/04/18 07:00 O2 Sat by Pulse Oximetry 96 01/04/18 08:38 General: Conversant, No Apparent Distress HEENT: Atraumatic, Normocephaly, Mucus Membranes Moist Neck: No JVD, Normal carotid pulses Cardiac: Reg Rate and Rhythm, Normal S1 and S2, No Murmur Lungs: Normal Breath Sounds, No Wheeze, Rales, Rhonchi Neuro: Alert and responsive, No focal deficits noted Abdomen: Soft, Non-Tender Skin: No rashes noted on visualized skin Musculoskeletal: No Chest Wall Tenderness Extremities: No Clubbing, No Cyanosis, No Edema, Normal Pulses Results 01/04/18 06:47 01/04/18 06:47 Lab Results Active Medications Acetaminophen (Tylenol) 650 mg PO Q6HR PRN PRN Reason: Mild Pain/Fever Stop: 07/04/18 19:22 Last Admin: 01/04/18 12:37 Dose: 650 mg Aspirin (Aspirin Ec) 81 mg PO DAILY [facility] Stop: 07/05/18 09:01 Last Admin: 01/04/18 12:38 Dose: 81 mg Carvedilol (Coreg) 3.125 mg PO BID [facility] Stop: 07/04/18 21:01 Last Admin: 01/04/18 12:38 Dose: 3.125 mg Clopidogrel Bisulfate (Plavix) 75 mg PO DAILY [facility] Stop: 07/05/18 09:01 Last Admin: 01/04/18 12:38 Dose: 75 mg Furosemide (Lasix) 40 mg PO QMWFSU [facility] Stop: 07/06/18 09:01 Last Admin: 01/04/18 12:38 Dose: 40 mg Isosorbide Mononitrate (Imdur) 30 mg PO DAILY [facility] Stop: 07/05/18 09:01 Last Admin: 01/03/18 08:32 Dose: 30 mg Melatonin (Melatonin) 6 mg PO HS [facility] Stop: 07/05/18 21:16 Last Admin: 01/03/18 21:35 Dose: 6 mg Naloxone HCl (Narcan) 0.4 mg IVP Q2MIN PRN PRN Reason: SEE COMMENTS Stop: 07/04/18 19:22 Senna (Senna) 17.2 mg PO HS [facility] Stop: 07/05/18 21:16 Last Admin: 01/03/18 21:35 Dose: 17.2 mg Simvastatin (Zocor) 40 mg PO [facility] PRN Reason: Protocol Stop: 07/04/18 21:01 Last Admin: 01/03/18 20:47 Dose: 40 mg Spironolactone (Aldactone) 25 mg PO [facility] Stop: 07/05/18 09:01 Tramadol HCl (Ultram) 100 mg PO Q6H PRN PRN Reason: leg pain Stop: 07/04/18 19:23 Last Admin: 01/04/18 08:30 Dose: 100 mg Trazodone HCl (Trazodone) 50 mg PO [facility] Stop: 07/04/18 21:01 Last Admin: 01/03/18 21:24 Dose: 50 mg Laboratory Tests 01/04/18 01/04/18 06:47 06:47 Hgb 14.5 Creatinine 1.05 - Imaging and Cardiology Chest Xray: report reviewed Stress Test: report reviewed Echo: report reviewed - EKG Interpretation EKG results cardiology: other (Telemetry reviewed with average HR previous 12 hours noted to be 63, paced rhythm. PVCs noted.) Consult Discharge Plan - Plan Referrals: Lisette Rodriguez MD [Primary Care Provider] -
--- NOTE | 2018-01-04 16:55 | Electrocardiograph Report ---
[place] [id number] Test Date: 2018-01-03 Pat Name: Tammie Le Department: 111 Room: 2NE17 Gender: F Painter: [facility] : 1930 Requested By: Edvin Whitney Order Number: [id number] Reading MD: Clayton Arenas Measurements Intervals [place] Rate: 59 P: 157 AK: 200 QRS: -18 QRSD: 101 T: 41 QT: 436 QTc: 436 Interpretive Statements ELECTRONIC ATRIAL PACEMAKER MINIMAL VOLTAGE CRITERIA FOR LVH, CONSIDER NORMAL VARIANT ABNORMAL RHYTHM ECG Electronically Signed On 01-04-2018 16:53:39 EST by Clayton Arenas
[2018-01-04] MEDS ORDERED: Spironolactone 25 MG TABLET PO SCH (21:00)
== END 2018-01-04 16:42 | disposition home or self-care (01) ==
LOC: 2NENU
PROVIDERS: ADMIT Internal Medicine; ATTEND Internal Medicine